=== PATIENT | female | born 1995 | race Caucasian/White ===

== ENCOUNTER 2021-05-23 17:40 | Outpatient (CLI) | payer SELFPAY ==
[2021-05-23] MEDS ORDERED: AMPICILLIN 2,000 MG in SODIUM CHLORIDE 0.9% 100 ML IVPB STA (18:08)
[2021-05-23] MEDS ORDERED: AZITHROMYCIN 500 MG in SODIUM CHLORIDE 0.9% 250 ML IVPB SCH (18:15)
[2021-05-23] MEDS ORDERED: LACTATED RINGERS 1,000 ML IV SCH (18:15)
[2021-05-23] MEDS ORDERED: BETAMET ACET-BETAMETH SOD PHOS 6 MG/ML MDV IM SCH (19:00)
--- NOTE | 2021-05-23 19:02 | US ---
EXAMINATION TYPE: US OB >= 14 wk fetus DATE OF EXAM: 05/23/2021 COMPARISON: None CLINICAL HISTORY: No care, SROM Spontaneous leakage. No care. Unknown LMP. No pa in. TECHNIQUE: Transabdominal (TA) GESTATIONAL AGE / DATING Physician Established: Not yet established Dates by LMP: LMP unknown Dates by First Scan: No previous this is first scan Dates by Current Scan: (29 weeks/1 days) EDC: 08/04/2021 Beta HCG (if available): Not available at this time SURVEY IUP: Single PLACENTA: Anterior PREVIA: No Previa ALEX: 4.3 cm Oligohydramnios CERVICAL LENGTH (transabdominal: norm > 3.0cm): 2.2 cm BIOMETRY PRESENTATION: Vertex BPD: 7.0 cm 28 weeks / 0 days HC: 26.5 cm 28 weeks / 6 days AC: 27.6 cm 31 weeks / 5 days FL: 5.2 cm 27 weeks / 5 days ESTIMATED WEIGHT IN GRAMS: 1462 grams ESTIMATED WEIGHT IN LBS/OZ: 3 lbs. 4 oz. WEIGHT PERCENTAGE BASED ON ESTABLISHED DATES: Unknown HC/AC: 1.0 FL/AC: 19% HEART RATE: 152 bpm RHYTHM: Normal Single live IUP measuring 29 weeks 1 day. Shortened cervix and low ALEX. IMPRESSION: Amniotic fluid is a little bit low.
[2021-05-23 19:18] LABS: Appearance,Urine Cloudy (Clear); Bacteria,Urine Rare /hpf; Bilirubin,Urine Negative (Negative); Blood,Urine Negative (Negative); Budding Yeast,Urine Occasional /hpf; Color,Urine Yellow; Glucose,Urine (UA) Negative (Negative); Ketones,Urine Negative (Negative); Leukocyte Esterase,Urine Moderate (Negative); Mucus,Urine Rare /hpf; Nitrite,Urine Negative (Negative); Protein,Urine Negative (Negative); RBC,Urine 1 /hpf (0-5); Specific Gravity,Urine 1.015 (1.001-1.035); Squamous Epithelial Cell,Urine <1 /hpf (0-4); Urobilinogen,Urine <2.0 mg/dL (<2.0); WBC,Urine 9 /hpf (0-5)
[2021-05-23 19:19] LABS: Amphetamine Screen,Urine Not Detected (NotDetected); Barbiturate Screen,Urine Not Detected (NotDetected); Benzodiazepines Screen,Urine Not Detected (NotDetected); Cocaine Screen,Urine Detected (NotDetected); Methadone Screen, Urine Detected (NotDetected); Opiate Screen,Urine Not Detected (NotDetected); Oxycodone Screen, Urine Not Detected (NotDetected); Phencyclidine Screen,Urine Not Detected (NotDetected); Tricyclic Antidepressant,Urine Not Detected (NotDetected); Urn Cannabinoid Scrn Not Detected (NotDetected)
[2021-05-23 19:20] VITALS: BP 131/73; PULSE 99; RESP 14; TEMP 97
[2021-05-23] MEDS ORDERED: ACETAMINOPHEN TAB 500 MG TAB PO STA (19:43)
[2021-05-23 19:52] LABS: Basophils % (A) 0 %; Eosinophils % (A) 1 %; HCT 32.5 % (34.0-46.0); HGB 10.9 gm/dL (11.4-16.0); Lymphocytes # (A) 0.8 k/uL (1.0-4.8); Lymphocytes % (A) 12 %; MCH 31.5 pg (25.0-35.0); MCHC 33.5 g/dL (31.0-37.0); MCV 93.9 fL (80.0-100.0); Mean Platelet Volume 9.2; Monocytes # (A) 0.3 k/uL (0-1.0); Monocytes % (A) 4 %; Neutrophils # (A) 5.6 k/uL (1.3-7.7); Neutrophils % (A) 80 %; Platelet Count 134 k/uL (150-450); RBC 3.46 m/uL (3.80-5.40); RDW 14.9 % (11.5-15.5); WBC 6.9 k/uL (3.8-10.6)
[2021-05-23] MEDS ORDERED: WATER IVPB ONE ×2 (21:00)
[2021-05-23] MEDS ORDERED: DEXTROSE 5% IVPB ONE ×2 (21:00)
[2021-05-23] MEDS ORDERED: MAGNESIUM SULFATE IVPB ONE ×2 (21:00)
--- NOTE | 2021-05-23 22:01 | P.HPOB ---
History of Present Illness H&P Date: 05/23/21 Chief Complaint: Spontaneous rupture of membranes This is a 26-year-old female 4 para 2 with no care and unknown last menstrual period who presented to labor and delivery triage with complaints of spontaneous rupture membranes with a large gush of clear fluid at approximately 5 PM. She denies feeling any contractions or cramping. She denies any vaginal bleeding. Upon arrival she was wearing a diaper that was saturated with clear fluid. Her only complaint in triage is tooth pain that she stated started about 3 days ago. 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 She states that prior to admission she was using heroin 1-2 times a day for at least a year. Her drug screen on admission to the rehab facility was positive for cocaine, marijuana, fentanyl, tricyclic antidepressants, and Klonopin. Patient denies any cocaine use. She has used marijuana last about a few weeks ago. She does have a history of using Klonopin and last used 1-2 months ago. This was prescribed by a Dr. Sanches out of [place]. She found out she was about a month ago when she went to the ER at [facility] but stated that she left the hospital before ultrasound was done. She was diagnosed by a blood test. She has been feeling movement. She did state that she saw a doctor Joshua at [facility] about 3 weeks ago for her first visit but did not have any blood work or ultrasound done. Obstetrical history: . She has a history of 2 full-term deliveries she states at 38 weeks, both delivered at [facility]. Her first baby was a vaginal delivery of her second baby was a section for bleeding, she believes it was an abruption. She also has a history of 1 termination of when she was 17 years old. Review of Systems Constitutional: Denies chills, Denies fever Eyes: denies blurred vision, denies pain Ears, nose, mouth and throat: Reports mouth pain (Toothache) Cardiovascular: Denies chest pain, Denies shortness of breath Respiratory: Denies cough Gastrointestinal: Denies abdominal pain Genitourinary: Reports pelvic pain, Reports Musculoskeletal: Denies myalgias Integumentary: Denies pruritus, Denies rash Psychiatric: Reports anxiety Past Medical History Past Medical History: Asthma History of Any Multi-Drug Resistant Organisms: None Reported Past Surgical History: Section Past Anesthesia/Blood Transfusion Reactions: No Reported Reaction Past Psychological History: Anxiety Smoking Status: Current every day smoker Past Drug Use History: Heroin, IV Drug Use, Marijuana - Past Family History Mother Family Medical History: Unable to Obtain Medications and Allergies Home Medications Medication Instructions Recorded Confirmed Type Methadone [Dolophine] 5 mg PO HS 05/23/21 05/23/21 History Methadone [Dolophine] 30 mg PO DAILY 05/23/21 05/23/21 History Allergies Allergy/AdvReac Type Severity Reaction Status Date / Time No Known Allergies Allergy Verified 05/23/21 17:47 Exam Osteopathic Statement: *. No significant issues noted on an osteopathic structural exam other than those noted in the History and Physical/Consult. Vital Signs Temp Pulse Resp BP 05/23/21 19:10 97.0 F L 99 14 131/73 Intake and Output 05/23/21 05/23/21 05/23/21 06:59 14:59 22:59 Other: Weight 82.1 kg Gen.: Well-developed well-nourished nourished female, mildly anxious Heart: Regular rate and rhythm Lungs: Clear to auscultation bilaterally Abdomen: Soft, nontender Speculum exam performed by nursing: Minimal fluid noted. Positive amnisure. heart tones: 150s with normal variability and no decelerations Contractions: None Cervical exam: Not done. Sterile speculum exam by myself at 9:20 PM: Clear fluid is noted, cervix appears at least 2 cm thick and possibly fingertip dilated Extremities: Negative Homans Results Obstetrical ultrasound: Vertex, 29-1/7 weeks with an EDC of 08/04/2021, cervical length of 2.2 cm. ALEX-4.3 cm Result Diagrams: 05/23/21 19:29 05/23/21 19:29 Abnormal Lab Results - Last 24 Hours (Table) 05/23/21 05/23/21 Range/Units 18:55 19:29 RBC 3.46 L (3.80-5.40) m/uL Hgb 10.9 L (11.4-16.0) gm/dL Hct 32.5 L (34.0-46.0) % Plt Count 134 L (150-450) k/uL Lymphocytes # 0.8 L (1.0-4.8) k/uL Urine Appearance Cloudy H (Clear) Ur Leukocyte Esterase Moderate H (Negative) Urine WBC 9 H (0-5) /hpf Urine Bacteria Rare H (None) /hpf Urine Mucus Rare H (None) /hpf Urine Yeast (Budding) Occasional H (None) /hpf Urine Methadone Screen Detected H (NotDetected) Urine Cocaine Screen Detected H (NotDetected) Assessment and Plan (1) 29 weeks gestation of Current Visit: Yes Status: Acute Code(s): Z3A.29 - 29 WEEKS GESTATION OF SNOMED Code(s): 19832851 (2) premature rupture of membranes (PPROM) with unknown onset of labor Current Visit: Yes Status: Acute Code(s): O42.919 - PRETRM ANAT ROM, UNSP TIME BETW RUPT AND ONST LABR, UNSP TRI SNOMED Code(s): 66138186147710421 Plan: The patient has been started on ampicillin 2 g IV piggyback and azithromycin 500 mg IV piggyback. She is also been given Celestone 1 dose. She is also had magnesium sulfate 6 g bolus given per request of [facility]. I did speak with a Dr. Juares at labor and delivery at [facility] and attending mc Putnam has accepted transfer to labor and delivery at [facility]. All labs have been ordered. COVID testing is done per request of [facility] and is negative.
--- NOTE | 2021-05-24 08:34 | P.MSEPDOC ---
Presenting Problems - Arrival Data Date of Arrival on Unit: 05/23/21 Time of Arrival on Unit: 17:40 Mode of Transport: EMS - Complaint OB-Reason for Admission/Chief Complaint: Rule Out PROM Medical History - Information : 5 Para: 2 Term: 1 : 1 Abortions: Spontaneous or Elective: 2 Number of Living Children: 2 - Gestational Age Gestational Age by EMERY (wks/days): 29 Weeks and 1 Days - History Complications: Prior , Smoker, Hx. Substance Abuse Comment: herion, cocaine, THC Review of Systems - Review of Systems Constitutional: No problems Breast: No problems ENT: No problems Cardiovascular: No problems Respiratory: No problems Gastrointestinal: No problems Genitourinary: No problems Musculoskeletal: No problems Neurological: No problems Skin: No problems Vital Signs - Temperature Temperature: 97.0 F - Pulse Right Brachial Pulse Rate: 99 Pulse Assessment Method: Automatic Cuff - Respirations Respiratory Rate: 14 Oxygen Delivery Method: Room Air - Blood Pressure Right Arm Blood Pressure: 131/73 Blood Pressure Mean: 92 Blood Pressure Source: Automatic Cuff Medical Screen Scoring - Cervical Exam Membranes: Ruptured - Assessment - Baby A Baseline FHR: 155 Heart Rate - NICHD Category: Category I (Normal) NST: Reactive Physician Notification - Physician Notified Physician Notified Date: 05/23/21 Physician Notified Time: 18:00 Physician: Veena Parson - Notification Comment Comment: Dr. Parson on her way to transfer pt to another hospital Maternal Triage Index - Maternal Triage Index Presenting for scheduled procedure w/no complaint: No - Stat/Priority 1 Stat Priority 1: No - Urgent/Priority 2 Urgent Priority 2: Yes Provider Notified: Veena Parson Provider Notified Time: 18:00 Criteria Met for Priority 2: < 34 weeks SROM Disposition - Disposition OB Disposition: Transfer to other dept./facility I agree with the RN Medical Screening Exam: Yes Case reviewed; plan agreed upon as documented in EMR&OBIX.: Yes Diagnosis: PRETRM ANAT ROM, UNSP TIME BETW RUPT AND ONST LABR, UNSP TRI Additional Diagnoses: 29 weeks gestation
[2021-05-24 11:23] LABS: Hepatitis B Surface Antigen Non-Reactive (Non-Reactive)
[2021-05-24 20:20] LABS: HIV 2 AB Non-Reactive (Non-Reactive); HIV AB P24 Non-Reactive (Non-Reactive); HIV P24 AG Non-Reactive (Non-Reactive)
[2021-05-26 16:25] LABS: C. trachomatis,PCR Positive (Neg,Equiv); Chlamydia trachomatis Source Urine; N. gonorrhoeae,PCR Negative (Neg,Equiv); Neisseria Source Urine
== END 2021-05-23 22:50 | disposition home or self-care (01) ==
LOC: FBPOP 17:40
PROVIDERS: ATTEND Obstetrics & Gynecology
DX: O42.913 Preterm premature rupture of membranes, unspecified as to length of time between rupture and onset of labor, third trimester (principal); Z3A.29 29 weeks gestation of pregnancy; O99.513 Diseases of the respiratory system complicating pregnancy, third trimester; J45.909 Unspecified asthma, uncomplicated; O99.333 Smoking (tobacco) complicating pregnancy, third trimester; F17.200 Nicotine dependence, unspecified, uncomplicated
CPT/HCPCS: 59025; 99215; 96361; 96365; 96366; 96372; 84112; 86900; 86901; 86762; 82947; 85025; 86850; 87340; 81001; 87491; 87591; 86780; 80306; 87390; 87635; 76805; J0456; J0290; J3475; J0702